=== PATIENT | female | born 1975 | race Caucasian/White ===

== ENCOUNTER 2023-04-08 14:23 | Inpatient (IN) | payer SELFPAY, OTHER ==
[~2023-04-08 14:23] MED LIST: Iopamidol-370 76% 500 ML MDV (1 ML CHARGE) ONE
[2023-04-08] MEDS ORDERED: Ketorolac Tromethamine 30 MG/ML VIAL ONE (15:35)
[2023-04-08] MEDS ORDERED: Metoclopramide HCl 10 MG/2 ML VIAL ONE (15:35)
[2023-04-08] MEDS ORDERED: Ondansetron PF 4 MG/2 ML Vial IVP PRN (16:33)
[2023-04-08] MEDS ORDERED: Morphine 2 MG/ML VIAL SLOW IVP PRN (16:33)
[2023-04-08 16:52] LABS: #Basophils 0.1 thou/uL (0.0-0.2); #Monocytes 0.8 thou/uL (0.11-0.59); #Neutrophils 18.9 thou/uL (1.40-6.50); %Basophils 0.3 % (0.0-1.0); %Eosinophils 0.2 % (0.0-10.0); %Lymphocytes 6.1 % (21.0-51.0); %Monocytes 3.8 % (0.0-10.0); %Neutrophils 89.1 % (42.0-75.0); Hemoglobin 13.8 g/dL (12.0-16.0); Mean Corpuscular HGB CONC 32.5 g/dL (32.0-36.0); Mean Corpuscular Volume 92.2 fl (78.0-98.0); Mean Platelet Volume 10.2 fL (7.4-10.4); Platelet Count 300 10x3/uL (130-400); RBC Distribution Width 12.3 % (11.5-14.5); White Blood Cell (WBC) Count 21.2 10x3/uL (4.8-10.8)
[2023-04-08 17:16] LABS: ALT (SGPT) 33 U/L (8-55); AST (SGOT) 42 U/L (5-34); Albumin 4.1 g/dL (3.5-5.0); Alkaline Phosphatase 77 U/L (40-110); Anion Gap 12 mmol/L (10-20); BUN (Urea Nitrogen) 17 mg/dL (7.0-18.7); Bilirubin, Total 0.3 mg/dL (0.2-1.2); Calc. Creatinine Clearance 0 mL/min (70-130); Calcium 9.1 mg/dL (7.8-10.44); Carbon Dioxide 23 mmol/L (22-29); Chloride 105 mmol/L (98-107); Estimated GFR 80; Globulin 2.7 g/dL (2.4-3.5); Glucose 149 mg/dL (70-105); Potassium 3.8 mmol/L (3.5-5.1); Protein, Total 6.8 g/dL (6.0-8.3); Sodium 136 mmol/L (136-145)
[2023-04-08 17:17] LABS: Acetaminophen Less than 10.0 mcg/mL (10.0-30.0); Alcohol Less than 10 mg/dL (Less than 10); Salicylate Less than 8.0 mg/dL (15.0-30.0)
[2023-04-08] MEDS ORDERED: Morphine 4 MG/ML VIAL ONE (17:20)
[2023-04-08] MEDS ORDERED: Dexamethasone 4 mg/ml Vial SLOW IVP SCH (18:00)
[2023-04-08] MEDS ORDERED: Acetaminophen 500 MG TAB PO SCH (18:00)
[2023-04-08] MEDS: Sodium Chloride 0.9% 1,000 ML IV SCH (19:57)
[2023-04-08] MEDS: Famotidine/PF 20 mg/2ml Vial SLOW IVP SCH (19:57)
[2023-04-08] MEDS: Acetaminophen/Codeine 30-300mg Tablet PO PRN (19:58)
[2023-04-08] MEDS: Senokot S 8.6-50 MG TAB PO SCH (20:03)
[2023-04-08] MEDS: Acetaminophen 325 MG TAB PO SCH (20:03)
[2023-04-08 22:03] VITALS: BMI 21.2
[2023-04-09] MEDS: Acetaminophen 325 MG TAB PO SCH ×5 (00:44→22:54)
[2023-04-09] MEDS: Sodium Chloride 0.9% 1,000 ML IV SCH ×3 (03:06→18:55)
[2023-04-09] MEDS: Dexamethasone 4 mg/ml Vial SLOW IVP SCH ×3 (03:06→16:52)
[2023-04-09 06:09] LABS: #Monocytes 0.2 thou/uL (0.11-0.59); #Neutrophils 13.4 thou/uL (1.40-6.50); %Basophils 0.1 % (0.0-1.0); %Lymphocytes 5.9 % (21.0-51.0); %Monocytes 1.2 % (0.0-10.0); %Neutrophils 92.3 % (42.0-75.0); Hemoglobin 13.4 g/dL (12.0-16.0); Mean Corpuscular HGB CONC 32.7 g/dL (32.0-36.0); Mean Corpuscular Hemoglobin 29.6 pg (27.0-31.0); Mean Corpuscular Volume 90.7 fl (78.0-98.0); Mean Platelet Volume 10.1 fL (7.4-10.4); Platelet Count 308 10x3/uL (130-400); Red Blood Cell (RBC) Count 4.52 mill/uL (4.20-5.40); White Blood Cell (WBC) Count 14.5 10x3/uL (4.8-10.8)
[2023-04-09 06:24] LABS: PTT 24.9 sec (22.9-36.1)
[2023-04-09 06:46] LABS: Anion Gap 11 mmol/L (10-20); BUN (Urea Nitrogen) 11 mg/dL (7.0-18.7); Calc. Creatinine Clearance 97 mL/min (70-130); Calcium 8.8 mg/dL (7.8-10.44); Carbon Dioxide 19 mmol/L (22-29); Chloride 111 mmol/L (98-107); Estimated GFR 103; Glucose 126 mg/dL (70-105); Potassium 4.5 mmol/L (3.5-5.1); Sodium 136 mmol/L (136-145)
[2023-04-09] MEDS ORDERED: Magnesium 5 GM/10 ML VIAL ONE (07:36)
[2023-04-09] MEDS ORDERED: fentaNYL 50 mcg/mL 1 mL Vial ONE (08:27)
[2023-04-09] MEDS ORDERED: Sodium Chloride 0.9% 100 ML ONE (08:33)
[2023-04-09] MEDS ORDERED: CEFAZOLIN 2 GM VIAL ONE (08:33)
[2023-04-09] MEDS ORDERED: Ketamine In 0.9 % NaCl 50 MG/5 ML SYRINGE ONE (09:07)
[2023-04-09] MEDS ORDERED: Ketorolac Tromethamine 30 MG/ML VIAL ONE ×2 (09:15→10:42)
[2023-04-09] MEDS ORDERED: Lidocaine 1% PF 5 ML VIAL ONE (09:15)
[2023-04-09] MEDS ORDERED: Ondansetron PF 4 MG/2 ML Vial ONE (09:15)
[2023-04-09] MEDS ORDERED: PROPOFOL 200 MG/20 ML VIAL ONE (09:15)
[2023-04-09] MEDS ORDERED: Promethazine HCl 25 MG/ML VIAL IM PRN (10:29)
[2023-04-09] MEDS ORDERED: Ondansetron HCl/PF 4 MG/2 ML Vial IVP PRN (10:29)
[2023-04-09] MEDS ORDERED: Communication Order-Pharmacy FS PRN (10:45)
[2023-04-09] MEDS: Polyethylene Glycol 3350 17 GM Packet PO SCH (11:45)
[2023-04-09] MEDS: Famotidine/PF 20 mg/2ml Vial SLOW IVP SCH ×2 (11:45→22:55)
[2023-04-09] MEDS: Senokot S 8.6-50 MG TAB PO SCH ×2 (11:46→22:53)
[2023-04-09] MEDS: Acetaminophen/Codeine 30-300mg Tablet PO PRN (11:46)
[2023-04-09] MEDS: Ketorolac Tromethamine 30 MG/ML VIAL IVP SCH ×3 (13:09→22:52)
[2023-04-09] MEDS ORDERED: Cyclobenzaprine 10 MG TAB PO PRN (14:40)
[2023-04-09] MEDS ORDERED: Bupivacaine HCl 0.5%/Epinephrine 1:200,000/PF 30 ml Vial ONE (14:56)
[2023-04-09] MEDS: CEFAZOLIN 2 GM in Sodium Chloride 0.9% 100 ML IVPB SCH (16:51)
[2023-04-09] MEDS: Acetaminophen/Codeine 30-300mg Tablet PO SCH ×2 (18:54→22:53)
[2023-04-10] MEDS: CEFAZOLIN 2 GM in Sodium Chloride 0.9% 100 ML IVPB SCH (02:07)
[2023-04-10] MEDS: Sodium Chloride 0.9% 1,000 ML IV SCH (02:08)
[2023-04-10] MEDS: Acetaminophen/Codeine 30-300mg Tablet PO SCH ×2 (05:01→11:17)
[2023-04-10 06:12] LABS: #Monocytes 1.2 thou/uL (0.11-0.59); #Neutrophils 17.4 thou/uL (1.40-6.50); %Basophils 0.1 % (0.0-1.0); %Lymphocytes 7.4 % (21.0-51.0); %Monocytes 6.1 % (0.0-10.0); %Neutrophils 85.4 % (42.0-75.0); Hemoglobin 11.3 g/dL (12.0-16.0); Mean Corpuscular HGB CONC 31.5 g/dL (32.0-36.0); Mean Corpuscular Hemoglobin 29.4 pg (27.0-31.0); Mean Corpuscular Volume 93.2 fl (78.0-98.0); Mean Platelet Volume 10.5 fL (7.4-10.4); Platelet Count 302 10x3/uL (130-400); RBC Distribution Width 12.7 % (11.5-14.5); Red Blood Cell (RBC) Count 3.85 mill/uL (4.20-5.40); White Blood Cell (WBC) Count 20.3 10x3/uL (4.8-10.8)
[2023-04-10] MEDS: Ketorolac Tromethamine 30 MG/ML VIAL IVP SCH ×2 (06:18→11:18)
[2023-04-10] MEDS: Acetaminophen 325 MG TAB PO SCH ×2 (06:21→11:18)
[2023-04-10 08:10] VITALS: TEMP 98.2
[2023-04-10] MEDS: Famotidine/PF 20 mg/2ml Vial SLOW IVP SCH (08:56)
[2023-04-10] MEDS: Polyethylene Glycol 3350 17 GM Packet PO SCH (08:57)
[2023-04-10] MEDS: Senokot S 8.6-50 MG TAB PO SCH (08:57)
[2023-04-10 11:49] VITALS: BP 117/74
== END 2023-04-10 12:20 | disposition home or self-care (01) | DRG 511 ==
LOC: ERS 14:23 → SURG A 16:37
PROVIDERS: ADMIT Surgery; ATTEND Surgery
PROC: 0PSL04Z Reposition Left Ulna with Internal Fixation Device, Open Approach (ICD-10-PCS; principal; 2023-04-09)
DX: S52.022A Displaced fracture of olecranon process without intraarticular extension of left ulna, initial encounter for closed fracture (principal); S02.32XA Fracture of orbital floor, left side, initial encounter for closed fracture; S06.0X9A Concussion with loss of consciousness of unspecified duration, initial encounter; S02.842A Fracture of lateral orbital wall, left side, initial encounter for closed fracture; V29.99XA Rider (driver) (passenger) of other motorcycle injured in unspecified traffic accident, initial encounter; Z90.49 Acquired absence of other specified parts of digestive tract
CPT/HCPCS: 29105; 36415; 70450; 70498; 71045; 72125; 80048; 80053; 80307; 85025; 85610; 85730; 86850; 86900; 86901; 96374; 96375; C1713; C1769; G0390; J1100; J1885; J2270; J2272; J2405; J2704; J2765; J3010; J3475; J3490; J7050; Q9967; S0028